=== PATIENT | female | born 1955 | race Caucasian/White ===

== ENCOUNTER 2019-07-13 11:41 | Day surgery (SDC) | payer OTHER ==
[2019-07-12 12:57] LABS: BASOPHILS # (AUTO) 0.1 K/uL (0.0-0.2); BASOPHILS % (AUTO) 0.8 % (0.0-2.0); EOSINOPHILS # (AUTO) 0.1 K/uL (0.0-0.4); HEMOGLOBIN 12.9 g/dL (12.0-16.0); LYMPHOCYTES # (AUTO) 2.6 K/uL (1.0-5.5); LYMPHOCYTES % (AUTO) 40.5 % (20.5-51.5); MEAN CORPUSCULAR HEMOGLOBIN 29 pg (27-31); MEAN CORPUSCULAR HGB CONC 33 % (32-36); MEAN CORPUSCULAR VOLUME 86 fL (79.0-98.0); MONOCYTES # (AUTO) 0.5 K/uL (0.0-1.0); MONOCYTES % (AUTO) 7.8 % (1.7-9.3); NEUTROPHILS # (AUTO) 3.1 K/uL (1.8-7.7); NEUTROPHILS % (AUTO) 48.9 % (40.0-70.0); PLATELET COUNT (AUTO) 261 K/uL (130-430); RED BLOOD CELL COUNT(AUTO) 4.51 MIL/uL (4.2-6.2); RED CELL DISTRIBUTION WIDTH 13.3 % (9.0-15.0); WHITE BLOOD COUNT (AUTO) 6.4 K/uL (4.8-10.8)
[2019-07-12 13:05] LABS: ALBUMIN 4.1 g/dL (3.4-4.8); CALCIUM 9.5 mg/dL (8.4-11.0); CREATININE 0.76 mg/dL (0.55-1.30); POTASSIUM 3.8 mmol/L (3.5-5.1); TOTAL BILIRUBIN 0.7 mg/dL (0.0-1.0)
[2019-07-12 13:21] LABS: INR 1.1 (0.8-1.2)
[~2019-07-13] VITALS: Ht 157.5 cm; Wt 62.1 kg
[2019-07-13] MEDS ORDERED: ROCURONIUM BROMIDE 10 MG/ML (ZEMURON) IV ONE (13:20)
[2019-07-13] MEDS ORDERED: PROPOFOL 200MG/ 20ML VIAL (DIPRIVAN) IV ONE (13:20)
[2019-07-13] MEDS ORDERED: ONDANSETRON HCL 4 MG/2 ML VIAL IVP ONE (13:20)
[2019-07-13] MEDS ORDERED: LEVOFLOXACIN 500 MG/D5W 100 ML PIGGYBACK IV ONE (13:20)
[2019-07-13] MEDS ORDERED: GLYCOPYRROLATE 0.2 MG/ML VIAL IJ ONE (13:20)
[2019-07-13] MEDS ORDERED: NS IRRIG SOLN 1000 ML IR ONE (13:20)
[2019-07-13] MEDS ORDERED: BUPIVACAINE /EPINEPHRINE/PF 0.25% 30 ML VIAL INJ ONE (13:20)
[2019-07-13] MEDS ORDERED: MIDAZOLAM HCL 5 MG/5 ML VIAL IVP ONE (13:20)
[2019-07-13] MEDS ORDERED: ISOFLURANE 15 MIN GAS INH ONE (13:20)
[2019-07-13] MEDS ORDERED: LR 1,000 ML IV.SOLN IV ONE (13:20)
[2019-07-13] MEDS ORDERED: fentaNYL CITRATE 250 MCG/5 ML AMP IV ONE (13:20)
[2019-07-13] MEDS ORDERED: NEOSTIGMINE METHYLSULFATE 1 MG/ML, 10 ML VIAL IVP ONE (13:20)
[2019-07-13] MEDS ORDERED: LR 1,000 ML IV SCH (13:50)
[2019-07-13] MEDS ORDERED: MORPHINE 4 MG/ML INJ. SYRINGE IVP PRN ×2 (14:00)
[2019-07-13] MEDS ORDERED: METOCLOPRAMIDE HCL 10 MG/2 ML VIAL IVP PRN (14:00)
[2019-07-13] MEDS ORDERED: ONDANSETRON HCL 4 MG/2 ML VIAL IVP PRN (14:15)
[2019-07-13] MEDS ORDERED: HYDROcodone/ACETAMIN 5-325 MG TAB (NORCO/ VICODIN) PO PRN (14:15)
[2019-07-13] MEDS ORDERED: HYDROmorphone 1 MG INJ. 1 MG/ML AMPUL IVP PRN (14:15)
[2019-07-13] MEDS: MORPHINE 4 MG/ML INJ. SYRINGE IVP PRN ×4 (14:25→15:20)
[2019-07-13] MEDS: METOCLOPRAMIDE HCL 10 MG/2 ML VIAL ONE ×2 (14:50→15:05)
[2019-07-13] MEDS ORDERED: MORPHINE 4 MG/ML INJ. SYRINGE ONE ×2 (14:51→15:12)
[2019-07-13 15:37] VITALS: BP_SYST 126
[2019-07-13 15:41] VITALS: BP_SYST 126
[2019-07-13] MEDS ORDERED: LIP20 PO (15:44)
[2019-07-13] MEDS ORDERED: PRO40 PO (15:44)
[2019-07-13] MEDS ORDERED: ZYRTEC PO (15:44)
--- NOTE | 2019-07-13 15:45 | NUR ---
FROM OR RECEIVED PT FROM OR, PT IN STABLE CONDITION, NO S/S OF DISTRESS OR SOB NOTED, PT HAS NO C/O PAIN AT THIS TIME, PT IN STABLE CONDITION, PT AAOX4, VERBAL. IV CATHETER PATENT, NO SIGNS OF INFECTION OR INFILTRATION NOTED, RUNNING IV FLUIDS ORDERED. PT HAS 4 ABD INCISIONS, CLEAN AND DRY. PT HAS BILATERAL SCD'S IN PLACE. PT EDUCATED ON USE OF INCENTIVE SPIROMETER, PT TO USE 10 TIMES AN HOUR WHILE AWAKE, PT VERBALIZED UNDERSTANDING PT AT 1200ML. BED AT LOWEST POSITION, CALL LIGHT WITHIN REACH, WILL CONTINUE TO MONITOR PT FOR ANY CHANGES. FALL AND SAFETY PRECAUTIONS IN PLACE.
[2019-07-13] MEDS: NACL 0.9% 1,000 ML IV SCH (16:00)
[2019-07-13 16:30] VITALS: BP_SYST 110
--- NOTE | 2019-07-13 18:36 | NUR ---
CLOSING NOTE PT IN STABLE CONDITION, PT IN BED, NO S/S OF DISTRESS OR SOB NOTED, PT HAS NO C/O PAIN AT THIS TIME, PT IN STABLE CONDITION, PT AAOX4, VERBAL. IV CATHETER PATENT, NO SIGNS OF INFECTION OR INFILTRATION NOTED, RUNNING IV FLUIDS ORDERED. PT HAS 4 ABD INCISIONS, CLEAN AND DRY. PT HAS BILATERAL SCD'S IN PLACE. BED AT LOWEST POSITION, CALL LIGHT WITHIN REACH, WILL ENDORSE CARE OF PT TO INCOMING NURSE. FALL AND SAFETY PRECAUTIONS IN PLACE.
--- NOTE | 2019-07-13 19:10 | NUR ---
OPENING NOTES PATIENT AWAKE, SITTING IN BED AOX4. NO SIGNS OF RESPIRATORY DISTRESS NOTED. DENIES PAIN AND DISCOMFORT AT THIS TIME. HOB RAISED. BREATHING EVEN AND UNLABORED. IVF INFUSING WELL, PATENCY NOTED. SCD'S OPERATING WELL. VITAL SIGNS TAKEN AND RECORDED. INCENTIVE SPIROMETER AT BED SIDE. PATIENT WAS RE EDUCATED ON INCENTIVE SPIROMETER FOR ITS PURPOSE AND BENEFITS, PATIENT ABLE TO VERBALIZED UNDERSTANDING.CALL LIGHT WITHIN REACH, PATIENT WAS EDUCATED TO USE CALL LIGHT WHEN ASSISTANCE IS NEEDED, PATIENT ABLE TO VERBALIZED UNDERSTANDING. BED LOCKED AND IN LOWEST POSITION. BED ALARM ON. SAFETY PRECAUTIONS IN PLACE. WILL CONTINUE TO MONITOR PATIENT.
[2019-07-13 20:00] VITALS: BP_SYST 128
--- NOTE | 2019-07-13 22:35 | NUR ---
RN ROUNDS/VOIDED PATIENT AMBULATED AND VOIDED, BOWEL MOVEMENT NOTED. PATIENT WAS SAFELY ASSISTED BACK TO BED. NO SIGNS OF RESPIRATORY DISTRESS NOTED. DENIES PAIN AND DISCOMFORT AT THIS TIME. IVF INFUSING WELL. CALL LIGHT WITHIN REACH. NEEDS ATTENDED. SAFETY PRECAUTIONS IN PLACE. WILL CONTINUE TO MONITOR PATIENT.
[2019-07-13] MEDS: ACETAMINOPHEN 325 MG TABLET PO PRN (23:19)
--- NOTE | 2019-07-14 00:08 | NUR ---
RN ROUNDS PATIENT ASLEEP AT THIS TIME. NO SIGNS OF RESPIRATORY DISTRESS AND DISCOMFORT NOTED. BREATHING EVEN AND UNLABORED. IVF INFUSING WELL. SCD'S OPERATING WELL. SAFETY PRECAUTIONS IN PLACE. WILL CONTINUE TO MONITOR PATIENT
[2019-07-14 00:18] VITALS: BP_SYST 116
[2019-07-14] MEDS: NACL 0.9% 1,000 ML IV SCH ×2 (01:37→10:12)
--- NOTE | 2019-07-14 01:37 | NUR ---
NEW IV HUNG/VOIDED PATIENT ASSISTED TO RESTROOM AND SAFELY BACK TO BED. NO SIGNS OF RESPIRATORY DISTRESS AND DISCOMFORT NOTED. DENIES PAIN AT THIS TIME. PATIENT VERBALIZED FEELING BETTER. NEW IV HUNG AT THIS TIME. IVF INFUSING WELL, PATENCY NOTED. SCD'S OPERATING WELL. CALL LIGHT WITHIN REACH. SAFETY PRECAUTIONS IN PLACE. WILL CONTINUE TO MONITOR.
[2019-07-14] MEDS: ACETAMINOPHEN 325 MG TABLET PO PRN ×2 (05:26→10:01)
[2019-07-14 06:01] LABS: BASOPHILS % (AUTO) 0.4 % (0.0-2.0); EOSINOPHILS # (AUTO) 0.1 K/uL (0.0-0.4); EOSINOPHILS % (AUTO) 0.6 % (0.0-4.0); HEMATOCRIT 32.2 % (36-48); LYMPHOCYTES # (AUTO) 2.2 K/uL (1.0-5.5); LYMPHOCYTES % (AUTO) 21.7 % (20.5-51.5); MEAN CORPUSCULAR HEMOGLOBIN 30 pg (27-31); MEAN CORPUSCULAR HGB CONC 34 % (32-36); MEAN CORPUSCULAR VOLUME 86 fL (79.0-98.0); MONOCYTES # (AUTO) 0.8 K/uL (0.0-1.0); MONOCYTES % (AUTO) 8.3 % (1.7-9.3); NEUTROPHILS # (AUTO) 6.9 K/uL (1.8-7.7); PLATELET COUNT (AUTO) 196 K/uL (130-430); RED BLOOD CELL COUNT(AUTO) 3.72 MIL/uL (4.2-6.2); RED CELL DISTRIBUTION WIDTH 13.4 % (9.0-15.0)
[2019-07-14 06:05] LABS: CALCIUM 8.4 mg/dL (8.4-11.0); CREATININE 0.66 mg/dL (0.55-1.30); POTASSIUM 4.1 mmol/L (3.5-5.1); TOTAL BILIRUBIN 0.5 mg/dL (0.0-1.0)
--- NOTE | 2019-07-14 06:34 | NUR ---
CLOSING NOTES PATIENT ASLEEP AT THIS TIME. NO SIGNS OF RESPIRATORY DISTRESS AND DISCOMFORT NOTED AT THIS TIME. HOB RAISED. BREATHING EVEN AND UNLABORED. IVF INFUSING WELL, PATENCY NOTED. SCD'S OPERATING WELL. CALL LIGHT WITHIN REACH. BED LOCKED AND IN LOWEST POSITION. BED ALARM ON. SAFETY PRECAUTIONS IN PLACE. ALL NEEDS MET THROUGHOUT THE SHIFT. WILL CONTINUE TO MONITOR UNTIL ENDORSE TO ONCOMING SHIFT NURSE FOR CONTINUITY OF CARE. Addendum: 07/14/19 at 4826 by Erica Causey RN ENDORSED TO DORA GONZALEZ
--- NOTE | 2019-07-14 07:15 | NUR ---
Shift report received from night RN using SBAR
[2019-07-14 08:00] VITALS: BP_SYST 144
[2019-07-14 08:30] VITALS: BP_SYST 144
--- NOTE | 2019-07-14 08:30 | NUR ---
AM ASSESSMENT Pt A/O x 4. Ambulates without complaints of pain. PT on room air. Incision site covered with dressing. IV site SL. SCD on bilaterally on lower extremities. Allergy band in place. Bed locked and in lowest position with call light in place.
--- NOTE | 2019-07-14 09:55 | NUR ---
Pt complaining of pain in incision site. Offered dilauded pt refused and asked for Tylenol. Administered Tylenol 650mg. Pain 09/01
[2019-07-14 10:31] VITALS: BP_SYST 144
--- NOTE | 2019-07-14 10:45 | NUR ---
Discharge paperwork signed and placed in pt chart. Pt called to P/U with private auto. ETA 12:00. Pt expressed need for Zofran.
--- NOTE | 2019-07-14 11:30 | NUR ---
Pt complaining of nausea. Administered 4 mg Zofran. Will continue to monitor before discharge.
[2019-07-14 12:00] VITALS: BP_SYST 143
--- NOTE | 2019-07-14 12:45 | NUR ---
Discharged Uneventful Pt transported with wheelchair to front entrance with private auto. Addendum: 07/14/19 at 1301 by Thierno Arellano RN D/C Patient Patient given medication reconciliation form and D/C instructions. Exit Care provided. Patient verbalized understanding. Ambulatory with steady gait for discharge to home. Patient in stable condition, ID band removed. IV catheter removed, intact and dressing applied, no active bleeding. Patient educated on pain management. All belongings sent with patient.
== END 2019-07-14 12:45 | disposition home or self-care (01) ==
LOC: SDS 11:41 → SMU 11:43 → SDS 07-14 12:45
PROVIDERS: ATTEND Surgery
DX: K82.8 Other specified diseases of gallbladder (principal); Z88.0 Allergy status to penicillin
CPT/HCPCS: 36415 ×3; 47562; 71046; 80053 ×4; 85025 ×4; 85610; 85730; 88304; 93005; C1727; J1170; J1956; J2250; J2270; J2405 ×2; J2704; J2710; J2765; J3010; J3490 ×2; J7030 ×2; J7120